=== PATIENT | male | born 1985 | race African-American/Black ===

== ENCOUNTER 2018-09-14 23:35 | Emergency (ER) | payer OTHER ==
[2018-09-14 23:42] VITALS: BP 126/78; PULSE 87; TEMP 100.5; BMI 27.3
--- NOTE | 2018-09-15 00:22 | PDOC ---
History of Present Illness - General Chief Complaint: Cold Symptoms Stated Complaint: FEVER/LOSS OF APPETITE Time Seen by Provider: 09/15/18 00:09 - History of Present Illness Initial Comments: 09/15/18 00:27 The patient is a 32 year old male with no PMH who presents to our ED c/o 2 day h /o cough, runny nose, body aches and headache. Symptoms came on acutely yesterday. One episode of NBNB emesis. No symptoms including dysuria/ hematuria. Decreased appetite 2/2 to symptoms. 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 No known sick contacts. Patient did not receive the influenza vaccine. NKDA Surgical: none reported Social: 5 cigarettes weekly; social alcohol; denies other toxic habits PMD: None will refer to IM resident clinic Past History - Past Medical History Allergies/Adverse Reactions: Allergies Allergy/AdvReac Type Severity Reaction Status Date / Time No Known Allergies Allergy Verified 09/14/18 23:42 Home Medications: Ambulatory Orders Oseltamivir Phosphate [Tamiflu -] 75 mg PO BID #14 capsule 09/15/18 - Immunization History Immunization Up to Date: Yes - Suicide/Smoking/Psychosocial Hx Smoking History: Current some day smoker Have you smoked in the past 12 months: No Number of Cigarettes Smoked Daily: 5 Information on smoking cessation initiated: No Hx Alcohol Use: No Drug/Substance Use Hx: No Substance Use Type: None Review of Systems - Review of Systems Constitutional: Yes: Fever HEENTM: No: Recent change in vision Respiratory: No: Cough, Shortness of Breath Cardiac (ROS): No: Chest Pain, Lightheadedness, Palpitations, Syncope ABD/GI: Yes: Nausea, Vomiting. No: Constipated, Diarrhea : No: Burning, Dysuria Musculoskeletal: Yes: Other (body aches) Neurological: Yes: Headache *Physical Exam - Vital Signs Last Vital Signs Temp Pulse Resp BP Pulse Ox 100.5 F H 87 18 126/78 99 09/14/18 23:37 09/14/18 23:37 09/14/18 23:37 09/14/18 23:37 09/14/18 23:37 - Physical Exam General Appearance: Yes: Nourished, Appropriately Dressed HEENT: positive: Normal Voice, Hearing Grossly Normal Neck: positive: Trachea midline, Supple. negative: Lymphadenopathy (R), Lymphadenopathy (L) Respiratory/Chest: positive: Lungs Clear. negative: Normal Breath Sounds, Accessory Muscle Use Cardiovascular: positive: Regular Rate, S1, S2. negative: Edema, JVD, Murmur Gastrointestinal/Abdominal: positive: Normal Bowel Sounds, Soft Extremity: positive: Normal Capillary Refill, Normal Inspection Integumentary: positive: Normal Color, Dry, Warm Neurologic: positive: Fully Oriented, Alert Moderate Sedation - Procedure Monitoring Vital Signs: Procedure Monitoring Vital Signs Temperature 100.5 F H 09/14/18 23:37 Pulse Rate 87 09/14/18 23:37 Respiratory Rate 18 09/14/18 23:37 Blood Pressure 126/78 09/14/18 23:37 O2 Sat by Pulse Oximetry (%) 99 09/14/18 23:37 Medical Decision Making - Medical Decision Making 09/15/18 00:28 32 year old male w/headache, body ache, rhinorrhea. Febrile (100.5) @ presentation. Consider Influenza, Viral URI, Viral Syndrome, less likely meningitis (no nuchal rigidity, no AMS). Will test for influenza and treat prophylactically. Patient tolerating PO intake. Tylenol for fever. Referral to resident clinic. Patient discharged home with return precautions. I discussed the physical exam findings, ancillary test results and final diagnoses with the patient. I answered all of the patient's questions. The patient was satisfied with the care received and felt comfortable with the discharge plan and treatment plan. The patient will return to the Emergency Department with any new, persistent or worsening symptoms. *DC/Admit/Observation/Transfer Diagnosis at time of Disposition: Fever - Discharge Dispostion Disposition: HOME Condition at time of disposition: Good Decision to Admit order: No - Prescriptions Prescriptions: Oseltamivir Phosphate [Tamiflu -] 75 mg PO BID #14 capsule - Referrals Referrals: Jani Arriaza MD [Staff Physician] - - Patient Instructions Printed Discharge Instructions: How to Avoid a Cold or Flu Additional Instructions: A prescription has been sent to your pharmacy. Please take the entire prescribed course. Make an appointment with Dr. Arsalan Gunter to establish primary care. Return to the Emergency Department for any new/worsening/concerning symptoms including severe headache, neck stiffness, chest pain, shortness of breath. - Post Discharge Activity Forms/Work/School Notes: Back to Work
--- NOTE | 2018-09-15 00:26 | PDOC ---
Attending Attestation - HPI HPI: 09/15/18 00:44 The patient is a 32 year old male, with no significant PMH, who presents to the emergency department with 2 days of cough, rhinorrhea, generalized body aches and headache. The patient also endorses one episode of non bloody non bilious emesis and decreased appetite. The patient denies sick contacts. The patient states he did not receive a flu vaccine this year. The patient denies chest pain, shortness of breath and dizziness. Denies diarrhea and constipation. Denies dysuria, frequency, urgency and hematuria. Allergies: NKA Documentation prepared by Erasmo Sampson, acting as director medical surgical for Ryan Saravia MD. - Physicial Exam PE: 09/15/18 00:57 CONSTITUTIONAL: Awake and alert. NECK: Supple; non-tender; no cervical lymphadenopathy CARD: Normal S1, S2; no murmurs, rubs, or gallops RESP: Normal chest excursion with respiration; breath sounds clear and equal bilaterally; no wheezes, rhonchi, or rales ABD: Soft, non-distended; non-tender; no palpable organomegaly, no palpable hernias EXT: Normal ROM in all four extremities; non-tender to palpation; distal pulses intact SKIN: Warm, dry, no rash NEURO: No focal neurological deficiencies. <Erasmo Sampson - Last Filed: 09/15/18 00:56> - Resident Resident Name: Chely Clark - ED Attending Attestation I have performed the following: I have examined & evaluated the patient, The case was reviewed & discussed with the resident, I agree w/resident's findings & plan, Exceptions are as noted - Medical Decision Making 09/15/18 01:00 Patient is well-appearing 32-year-old male who presents with signs and symptoms of acute influenza-like illness. Patient presents within 72 hours of onset of symptoms. Patient is nontoxic appearing, without evidence of meningismus or petechial rash. Will obtain flu swab but given the symptomatology, will treat with Tamiflu presumptively. Will discharge. <Ryan Saravia - Last Filed: 09/15/18 01:00>
[2018-09-15] MEDS ORDERED: ACETAMINOPHEN 500 MG TABLET (FP) PO ONE (00:31)
[2018-09-15] MEDS ORDERED: ACETAMINOPHEN 325 MG TABLET (FP) ONE (00:34)
== END 2018-09-15 01:01 | disposition home or self-care (01) ==
LOC: JER 23:35
DX: J11.1 Influenza due to unidentified influenza virus with other respiratory manifestations (principal)
CPT/HCPCS: 87804; 99281-25